=== PATIENT | female | born 1970 | race Caucasian/White ===

== ENCOUNTER → 2020-12-09 | Outpatient (CLI) | payer BC ==
--- NOTE | 2020-12-09 13:27 | RAD ---
PROCEDURE: XR FOOT_LEFT 3 VIEWS STUDY DATE: 12/09/2020 CLINICAL INDICATION / HISTORY: Reason: LT FOOT PAIN / Spl. Instructions: ATTN 5TH METATARSAL / Histor y: . TECHNIQUE: AP, lateral and oblique views of the left foot. COMPARISON: None FINDINGS: No fracture or dislocation is identified. The bone density is normal. The joint space width s are maintained, and there are no erosions to suggest an inflammatory arthropathy. No soft tissue ab normality is seen. IMPRESSION: No acute osseous abnormality. Electronically signed by: Brendan Moreno MD (12/09/2020 1:24 PM) [id number]
== END ==
LOC: RAD 11:15
PROVIDERS: ATTEND Family Medicine
DX: M79.672 Pain in left foot (principal)
CPT/HCPCS: 73630